=== PATIENT | male | born 1945 | race Native Hawaiian/Other Pacific Islander ===

== ENCOUNTER 2017-07-20 08:46 | Day surgery (SDC) | payer MEDICARE, OTHER ==
[~2017-07-20] VITALS: Ht 166.4 cm; Wt 68.2 kg
[~2017-07-20 08:46] MED LIST: ADV250 IH; AMLO1CAP3 PO; ASPI81 PO; ATOR20TA86 PO; FINA5TAB41 PO; FLUT16H NASAL; ISOS30TA6 PO; METO25 PO; SITA1TAB6 PO; TAMS0.4C32 PO
[2017-07-20] MEDS ORDERED: EPINEPHrine 1:1,000 [1 MG/ML] AMP IM ONE (08:47)
[2017-07-20] MEDS ORDERED: TETRACAINE HCL VISCOUS 0.5% 5 ML OPHTHALMIC SOLUTION OS ONE (08:47)
[2017-07-20] MEDS ORDERED: HYALURONATE SOD/CHONDROITIN SOD 0.5 ML VIAL IO ONE (08:47)
[2017-07-20] MEDS ORDERED: FentaNYL CITRATE-PF 100 MCG/2 ML VIAL IVP ONE (08:47)
[2017-07-20] MEDS ORDERED: DEXAMETHASONE SOD PHOS 4 MG/ML VIAL IVP ONE (08:47)
[2017-07-20] MEDS ORDERED: MIDAZOLAM HCL 2 MG/2 ML VIAL IVP ONE (08:47)
[2017-07-20] MEDS ORDERED: 0.9% SODIUM CHLORIDE 10 ML VIAL IVP ONE (08:47)
[2017-07-20] MEDS ORDERED: HYALURONATE SODIUM 12 MG/ML 0.8 ML SYRINGE IO ONE (08:47)
[2017-07-20] MEDS ORDERED: BALANCED SALT 15 ML OPHTHALMIC IRRIG.SOLN OS ONE (08:47)
[2017-07-20] MEDS ORDERED: LIDOCAINE HCL/PF 1% 2 ML VIAL IM ONE (08:47)
[2017-07-20] MEDS ORDERED: POVIDONE-IODINE 10% 15 ML SOLUTION UD TP ONE (08:47)
[2017-07-20] MEDS ORDERED: RINGERS SOLUTION,LACTATED 500 ML IV ONE ×2 (08:56→09:30)
[2017-07-20] MEDS ORDERED: CYCLOPENTOLATE HCL 2% 2 ML OPHTHALMIC SOLUTION ONE (08:57)
[2017-07-20] MEDS ORDERED: PHENYLEPHRINE HCL 2.5% 2 ML OPHTHALMIC SOLUTION ONE (08:57)
[2017-07-20] MEDS ORDERED: TETRACAINE HCL/PF 0.5% 4 ML OPHTHALMIC SOLUTION ONE (08:57)
[2017-07-20] MEDS ORDERED: MOXIFLOXACIN HCL 0.5% 3 ML OPHTHALMIC SOLUTION ONE (08:57)
[2017-07-20] MEDS ORDERED: DICLOFENAC SODIUM 0.1% 2.5 ML OPHTHALMIC SOLUTION ONE (08:57)
[2017-07-20] MEDS ORDERED: DICLOFENAC SODIUM 0.1% 2.5 ML OPHTHALMIC SOLUTION OS ONE (09:30)
[2017-07-20] MEDS ORDERED: 0.9% SODIUM CHLORIDE 10 ML SYRINGE IVP PRN (09:30)
[2017-07-20] MEDS ORDERED: MOXIFLOXACIN HCL 0.5% 3 ML OPHTHALMIC SOLUTION OS ONE (09:30)
[2017-07-20] MEDS: PHENYLEPHRINE HCL 2.5% 2 ML OPHTHALMIC SOLUTION OS SCH ×2 (09:46→09:57)
[2017-07-20] MEDS ORDERED: TROPICAMIDE 1% 2 ML OPHTHALMIC SOLUTION ONE (09:49)
[2017-07-20] MEDS: TROPICAMIDE 1% 2 ML OPHTHALMIC SOLUTION OS SCH ×2 (09:50→09:57)
[2017-07-20 13:12] LABS: GLUCOMETER DEV NAME(LOC) SDS 5; GLUCOSE,POINT OF CARE 135 MG/DL (70-110)
== END 2017-07-20 13:25 | disposition home or self-care (01) ==
LOC: SURGERY 08:46
PROVIDERS: ATTEND Specialist
DX: E11.36 Type 2 diabetes mellitus with diabetic cataract (principal); H25.012 Cortical age-related cataract, left eye; Z79.82 Long term (current) use of aspirin; J45.909 Unspecified asthma, uncomplicated; I10 Essential (primary) hypertension; E78.00 Pure hypercholesterolemia, unspecified; Z87.891 Personal history of nicotine dependence; Z79.84 Long term (current) use of oral hypoglycemic drugs; Z98.890 Other specified postprocedural states; Z79.899 Other long term (current) drug therapy
CPT/HCPCS: 66984; 82962; 93005; C1780; J0171; J1100; J2250; J3010; J3490 ×2; J7120

== ENCOUNTER 2017-08-31 07:14 | Day surgery (SDC) | payer MEDICARE, OTHER ==
[~2017-08-31] VITALS: Ht 167.6 cm; Wt 68.2 kg
[2017-08-31] MEDS ORDERED: FentaNYL CITRATE-PF 100 MCG/2 ML VIAL IVP ONE (07:15)
[2017-08-31] MEDS ORDERED: MIDAZOLAM HCL 2 MG/2 ML VIAL IVP ONE (07:15)
[2017-08-31] MEDS ORDERED: PHENYLEPHRINE HCL 2.5% 2 ML OPHTHALMIC SOLUTION ONE (07:24)
[2017-08-31] MEDS ORDERED: DICLOFENAC SODIUM 0.1% 2.5 ML OPHTHALMIC SOLUTION ONE (07:24)
[2017-08-31] MEDS ORDERED: RINGERS SOLUTION,LACTATED 500 ML IV ONE ×2 (07:24→07:45)
[2017-08-31] MEDS ORDERED: MOXIFLOXACIN HCL 0.5% 3 ML OPHTHALMIC SOLUTION ONE (07:24)
[2017-08-31] MEDS ORDERED: TROPICAMIDE 1% 2 ML OPHTHALMIC SOLUTION ONE (07:24)
[2017-08-31] MEDS ORDERED: DICLOFENAC SODIUM 0.1% 2.5 ML OPHTHALMIC SOLUTION OD ONE (07:45)
[2017-08-31] MEDS ORDERED: MOXIFLOXACIN HCL 0.5% 3 ML OPHTHALMIC SOLUTION OD ONE (07:45)
[2017-08-31 08:07] LABS: GLUCOMETER DEV NAME(LOC) SDS 5; GLUCOSE,POINT OF CARE 138 MG/DL (70-110)
[2017-08-31] MEDS: PHENYLEPHRINE HCL 2.5% 2 ML OPHTHALMIC SOLUTION OD SCH ×2 (08:12→08:18)
[2017-08-31] MEDS: TROPICAMIDE 1% 2 ML OPHTHALMIC SOLUTION OD SCH ×2 (08:13→08:18)
== END 2017-08-31 10:30 | disposition home or self-care (01) ==
LOC: SURGERY 07:14
PROVIDERS: ATTEND Specialist
DX: E11.36 Type 2 diabetes mellitus with diabetic cataract (principal); H25.011 Cortical age-related cataract, right eye; I10 Essential (primary) hypertension; E78.00 Pure hypercholesterolemia, unspecified; J45.909 Unspecified asthma, uncomplicated; Z87.891 Personal history of nicotine dependence; Z98.890 Other specified postprocedural states; Z98.42 Cataract extraction status, left eye
CPT/HCPCS: 66984; 82962; C1780; J2250; J3010; J7120; 65785

== ENCOUNTER → 2018-02-03 | Outpatient (CLI) | payer MEDICARE, OTHER | END | disposition home or self-care (01) | LOC: RADPV 13:26 | PROVIDERS: ATTEND Internal Medicine | DX: R05 Cough (principal) ==

== ENCOUNTER → 2018-02-10 | Outpatient (CLI) | payer MEDICARE, OTHER | END | disposition home or self-care (01) | LOC: RADMN 08:18 | PROVIDERS: ATTEND Internal Medicine | DX: M48.061 Spinal stenosis, lumbar region without neurogenic claudication (principal); M51.36 Other intervertebral disc degeneration, lumbar region; M41.86 Other forms of scoliosis, lumbar region | CPT/HCPCS: 72148 ==

== ENCOUNTER → 2018-09-08 | Outpatient (CLI) | payer MEDICARE, OTHER | END | disposition home or self-care (01) | LOC: RADPV 10:37 | PROVIDERS: ATTEND Internal Medicine | DX: K59.00 Constipation, unspecified (principal) | CPT/HCPCS: 74018 ==

== ENCOUNTER → 2022-04-20 | Outpatient (CLI) | payer MEDICARE, OTHER ==
[~2022-04-20] VITALS: Ht 167.6 cm; Wt 71.0 kg
[~2022-04-20] MED LIST changes: -ADV250 IH; +ASPI-1450 PO; -ASPI81 PO; +FINA-27 PO; -FINA5TAB41 PO; -FLUT16H NASAL; +FLUT16SP NASAL; +FLUT1DIS6 IH; -ISOS30TA6 PO; +ISOS30TA92 PO; +PANT-31 PO; +TAMS-13 PO; -TAMS0.4C32 PO
[2022-04-20 14:23] VITALS: BP 139/77
== END | disposition home or self-care (01) ==
LOC: SRCNTR 13:51
PROVIDERS: ATTEND Internal Medicine
DX: R07.89 Other chest pain (principal); R00.2 Palpitations; E11.9 Type 2 diabetes mellitus without complications; E78.5 Hyperlipidemia, unspecified
CPT/HCPCS: 93005; G0463

== ENCOUNTER → 2022-05-04 | Outpatient (CLI) | payer MEDICARE, OTHER ==
[~2022-05-04] MED LIST changes: +AMINOPHYLLINE 25 MG/ML 10 ML VIAL IVP PRN; +REGADENOSON 0.4 MG/5 ML PF SYRINGE IVP ONE; +SESTAMIBI TC99M/UD ISOTOPE 1 EA INJ INJ ONE
[2022-05-04 10:05] VITALS: BP 137/79
[2022-05-04 10:10] VITALS: BP 128/76
== END | disposition home or self-care (01) ==
LOC: CARDMN 08:27
PROVIDERS: ATTEND Internal Medicine
DX: I07.1 Rheumatic tricuspid insufficiency (principal); R07.9 Chest pain, unspecified; R00.2 Palpitations
CPT/HCPCS: 78452; 93306; A9500

== ENCOUNTER → 2022-06-08 | Outpatient (CLI) | payer MEDICARE, OTHER ==
[~2022-06-08] VITALS: Ht 167.6 cm; Wt 69.5 kg
[~2022-06-08] MED LIST changes: -AMINOPHYLLINE 25 MG/ML 10 ML VIAL IVP PRN; -REGADENOSON 0.4 MG/5 ML PF SYRINGE IVP ONE; -SESTAMIBI TC99M/UD ISOTOPE 1 EA INJ INJ ONE
[2022-06-08 14:40] VITALS: BP 116/77
== END | disposition home or self-care (01) ==
LOC: SRCNTR 14:19
PROVIDERS: ATTEND Internal Medicine
DX: R07.89 Other chest pain (principal); R00.2 Palpitations; E11.9 Type 2 diabetes mellitus without complications; E78.5 Hyperlipidemia, unspecified
CPT/HCPCS: G0463; Z7500

== ENCOUNTER → 2022-09-07 | Outpatient (CLI) | payer MEDICARE, OTHER ==
[~2022-09-07] VITALS: Ht 167.6 cm; Wt 70.3 kg
[~2022-09-07] MED LIST changes: +ATOR20TA PO; -ATOR20TA86 PO
[2022-09-07 14:12] VITALS: BP 148/80
== END | disposition home or self-care (01) ==
LOC: SRCNTR 13:56
PROVIDERS: ATTEND Internal Medicine
DX: Z09 Encounter for follow-up examination after completed treatment for conditions other than malignant neoplasm (principal); R07.89 Other chest pain; R00.2 Palpitations; I10 Essential (primary) hypertension; E11.9 Type 2 diabetes mellitus without complications; E78.5 Hyperlipidemia, unspecified
CPT/HCPCS: G0463

== ENCOUNTER → 2022-12-03 | Outpatient (CLI) | payer MEDICARE, OTHER ==
[~2022-12-03] MED LIST changes: -ISOS30TA92 PO
== END | disposition home or self-care (01) ==
LOC: RADMN 12:41
PROVIDERS: ATTEND Internal Medicine
DX: R05.9 Cough, unspecified (principal); M47.814 Spondylosis without myelopathy or radiculopathy, thoracic region
CPT/HCPCS: 71046

== ENCOUNTER → 2023-05-11 | Outpatient (CLI) | payer MEDICARE, OTHER ==
[~2023-05-11] MED LIST changes: -TAMS-13 PO; +TAMS0.4C94 PO
== END | disposition home or self-care (01) ==
LOC: RADMN 09:55
PROVIDERS: ATTEND Internal Medicine
DX: R05.9 Cough, unspecified (principal)
CPT/HCPCS: 71046

== ENCOUNTER → 2024-07-25 | Outpatient (CLI) | payer MEDICARE, OTHER ==
[~2024-07-25] VITALS: Ht 167.6 cm; Wt 66.0 kg
[~2024-07-25] MED LIST changes: +APIX5TAB PO; +FLUT1BLS6 IH; -FLUT1DIS6 IH
[2024-07-25 14:13] VITALS: BP 131/57; PULSE 58; RESP 20; TEMP 97.4; O2SAT 99
== END | disposition home or self-care (01) ==
LOC: SRCNTR 14:05
PROVIDERS: ATTEND Internal Medicine
DX: I10 Essential (primary) hypertension (principal); E11.9 Type 2 diabetes mellitus without complications; E78.5 Hyperlipidemia, unspecified; I48.91 Unspecified atrial fibrillation; I49.3 Ventricular premature depolarization; Z79.01 Long term (current) use of anticoagulants; Z79.51 Long term (current) use of inhaled steroids; Z79.82 Long term (current) use of aspirin; Z79.84 Long term (current) use of oral hypoglycemic drugs; Z79.899 Other long term (current) drug therapy
CPT/HCPCS: G0463; Z7500